=== PATIENT | female | born 1960 | race Caucasian/White ===

== ENCOUNTER 2020-11-21 13:10 | Observation (INO) ==
[~2020-11-21 13:10] MED LIST: Buffered Lidocaine 1% SYRIN 1 ml INTRADERM ONE; Famotidine IV 10 MG/ML 2 ml VIAL (20 mg) IV ONE; Lactated Ringers 1000 ml BAG 1,000 ML IV SCH; Levalbuterol 0.63MG/3ML NEB UNIT OF USE INH ONE
[2020-11-21] MEDS ORDERED: Levalbuterol 0.63MG/3ML NEB UNIT OF USE INH ONE (13:28)
[2020-11-21] MEDS ORDERED: Famotidine IV 10 MG/ML 2 ml VIAL (20 mg) ONE (13:28)
[2020-11-21] MEDS ORDERED: ceFAZolin 2 GM in NS PREMIX 2 GM/100 ML BAG IVPB ONE (13:28)
[2020-11-21 13:56] LABS: Hematocrit 32 % (35-47); Hemoglobin 11.5 g/dL (12.0-16.0); Mean Corpuscular HGB Conc 36 g/dL (31-36); Mean Corpuscular Hemoglobin 35 pg (27-31); Mean Corpuscular Volume 96 fL (80-97); Mean Platelet Volume 7.8 fL (7.4-10.4); Platelet Count 236 10^3/uL (150-450); Red Blood Count 3.33 10^6 /uL (3.70-4.87); Red Cell Distribution Width 13 % (10-15); White Blood Count 7.5 10^3/uL (3.5-10.8)
[2020-11-21 14:12] LABS: Calcium 9.7 mg/dL (8.6-10.3); EGFR African American 110.2 (>60); Potassium 3.5 mmol/L (3.5-5.0)
[2020-11-21] MEDS ORDERED: ROPIVACAINE 5 MG/ML 30 ML BTL (0.5%) ONE (14:42)
[2020-11-21] MEDS ORDERED: Midazolam 2 mg/2 ml VIAL 1 mg/ml 2 ml VIAL (2 mg) ONE (14:45)
[2020-11-21] MEDS ORDERED: fentaNYL 250 mcg/5 ml 50 MCG/ML 5 ml VIAL (250 MCG) ONE (14:45)
[2020-11-21] MEDS ORDERED: Rocuronium 50 mg VIAL 10 mg/ml 5 ml VIAL (50 mg) ONE (14:46)
[2020-11-21] MEDS ORDERED: Propofol 10 MG/ML 20 ML BTL ONE (14:46)
[2020-11-21] MEDS ORDERED: Ondansetron 4 mg VIAL 2 MG/ML 2 ml VIAL ONE (14:46)
[2020-11-21] MEDS ORDERED: Dexamethasone IV 4 MG/ML VIAL 1 ml VIAL ONE ×2 (14:46→15:33)
[2020-11-21] MEDS ORDERED: Lidocaine 2% PF 5 ML VIAL ONE (14:46)
[2020-11-21] MEDS ORDERED: Prochlorperazine 5 mg/ml 2 ml VIAL (10 mg) IV PRN (15:38)
[2020-11-21] MEDS ORDERED: diPHENhydraMINE IV 50 MG/ML 1 ml VIAL (BENADRYL) IV PRN ×2 (15:38→19:04)
[2020-11-21] MEDS ORDERED: Naloxone 0.4 mg VIAL 0.4 mg/ml 1 ml VIAL IV PRN (15:38)
[2020-11-21] MEDS ORDERED: Phenylephrine 40 mcg/mL 10mL (400mcg) SYRINGE ONE (15:45)
[2020-11-21] MEDS ORDERED: Phenylephrine IV 10 MG/ML 1 ml VIAL ONE (16:08)
[2020-11-21] MEDS ORDERED: EPHEDrine (Pressors) 50 MG/ML VIAL ONE (16:25)
[2020-11-21] MEDS ORDERED: Vancomycin 1,000 MG VIAL ONE (18:11)
[2020-11-21] MEDS ORDERED: diPHENhydraMINE 25 mg TAB PO PRN (19:04)
[2020-11-21] MEDS ORDERED: Magnesium Hydroxide LIQ 30 ML UDC PO PRN (19:04)
[2020-11-21] MEDS ORDERED: Morphine 2 MG/ML SYRINGE IV PRN (19:04)
[2020-11-21] MEDS ORDERED: Lactulose 30 ml UDC PO PRN (19:04)
[2020-11-21] MEDS ORDERED: Ondansetron 4 mg VIAL 2 MG/ML 2 ml VIAL IV PRN (19:04)
[2020-11-21] MEDS ORDERED: Ondansetron ODT 4 mg TAB 4 MG TAB PO PRN (19:04)
[2020-11-21] MEDS ORDERED: Albuterol HFA INHALER 8 gm MDI INH PRN (19:18)
[2020-11-21] MEDS ORDERED: Lactated Ringers 1000 ml BAG 1,000 ML IV SCH (20:00)
[2020-11-21] MEDS: Magnesium Hydroxide LIQ 30 ML UDC PO SCH (21:15)
[2020-11-21] MEDS: ceFAZolin 1 GM ADVAN 1 GM in NS 0.9% 50 ML 50 ML IVPB SCH (23:53)
[2020-11-22 07:17] LABS: Hematocrit 25 % (35-47); Hemoglobin 8.9 g/dL (12.0-16.0); Mean Platelet Volume 7.6 fL (7.4-10.4); Platelet Count 189 10^3/uL (150-450)
[2020-11-22 07:32] LABS: Calcium 8.7 mg/dL (8.6-10.3); EGFR African American 130.5 (>60); EGFR Non-African American 107.8 (>60); Potassium 3.5 mmol/L (3.5-5.0)
[2020-11-22] MEDS: Magnesium Hydroxide LIQ 30 ML UDC PO SCH ×2 (07:55→08:02)
[2020-11-22] MEDS: ceFAZolin 1 GM ADVAN 1 GM in NS 0.9% 50 ML 50 ML IVPB SCH (07:56)
[2020-11-22 08:04] VITALS: BP 157/75
[2020-11-22] MEDS ORDERED: Vitamin THERAPEUTIC TAB PO SCH (09:00)
[2020-11-22] MEDS ORDERED: CMC:Budesonide 3 mg CAP (NF) PO SCH (09:00)
[2020-11-22] MEDS ORDERED: Enoxaparin 30 MG/0.3 ML SYR SUBCUT SCH (12:00)
== END 2020-11-22 11:05 | disposition home or self-care (01) ==
LOC: SSU 13:10 → OR 13:10
PROVIDERS: ADMIT Orthopaedic Surgery Hand Surgery; ATTEND Orthopaedic Surgery Hand Surgery

== ENCOUNTER 2022-11-11 14:57 | Observation (INO) ==
[2022-11-11 20:07] LABS: Hematocrit 31.4 % (35-45); Mean Corpuscular Hemoglobin 28.6 pg (27-33); Mean Corpuscular Hgb Conc 34.9 g/dL (31-36); Mean Corpuscular Volume 81.9 fL (80-97); Platelet Count 139 10^3/uL (150-450); Red Blood Count 3.83 10^6/uL (3.63-4.92); Red Cell Distribution Width 12.5 % (12-17); White Blood Count 1.3 10^3/uL (3.8-11.8)
[2022-11-11] MEDS ORDERED: Filgrastim* 480 MCG VIAL (AUTOSUB = ZARXIO*) SUBCUT ONE (20:15)
[2022-11-11 20:25] LABS: Albumin 4.1 g/dL (3.2-5.2); Albumin/Globulin Ratio 1.4 (1-3); Calcium 9.9 mg/dL (8.6-10.3); Creatinine, Serum 0.46 mg/dL (0.51-0.95); Globulin 2.9 g/dL (2-4); Potassium 3.6 mmol/L (3.5-5.0); Total Bilirubin 0.4 mg/dL (0.2-1.0); eGFR CKD-EPI 107.5 (>60)
[2022-11-11] MEDS ORDERED: NS 0.9% 1000 ml BAG 1,000 ML IV SCH (20:30)
[2022-11-11 21:16] LABS: ABS Lymphocytes 0.8 10^3/uL (1.0-4.8); ABS Monocytes 0.4 10^3/uL (0.0-0.9); ABS Neutrophils 0.1 10^3/uL (1.5-7.6); Eosinophil % 1.8 %; Lymphocyte % 61.2 %; Nucleated Red Blood Cells % 0.3 /100 WBC (0.0-0.4)
[2022-11-11] MEDS ORDERED: Enoxaparin 40 MG/0.4 ML SYR SUBCUT SCH (22:00)
[2022-11-12] MEDS ORDERED: Albuterol/Ipratropium NEB.SOL (2.5/0.5 MG) 3 ML NEB.SOLN INH PRN (00:02)
[2022-11-12] MEDS ORDERED: Albuterol HFA INHALER 8 gm MDI INH PRN (00:08)
[2022-11-12 05:08] LABS: Hematocrit 26.7 % (35-45); Hemoglobin 9.6 g/dL (11.5-14.3); Mean Corpuscular Hemoglobin 29.1 pg (27-33); Mean Corpuscular Hgb Conc 35.9 g/dL (31-36); Mean Corpuscular Volume 80.9 fL (80-97); Platelet Count 109 10^3/uL (150-450); Red Cell Distribution Width 12.4 % (12-17); White Blood Count 1.5 10^3/uL (3.8-11.8)
[2022-11-12 05:10] LABS: ABS Lymphocytes 0.6 10^3/uL (1.0-4.8); ABS Monocytes 0.4 10^3/uL (0.0-0.9); ABS Neutrophils 0.5 10^3/uL (1.5-7.6); Eosinophil % 1.4 %; Lymphocyte % 38.3 %; Nucleated Red Blood Cells % 0.3 /100 WBC (0.0-0.4)
[2022-11-12 05:14] LABS: Urine Appearance Cloudy; Urine Bilirubin Negative (Negative); Urine Blood Negative (Negative); Urine Color Colorless; Urine Glucose Negative (Negative); Urine Ketones Negative (Negative); Urine Nitrite Negative (Negative); Urine Protein Negative (Negative); Urine Specific Gravity 1.001 (1.002-1.030); Urine Urobilinogen Negative (Negative)
[2022-11-12 05:22] LABS: Calcium 9.1 mg/dL (8.6-10.3); Creatinine, Serum 0.44 mg/dL (0.51-0.95); Potassium 3.6 mmol/L (3.5-5.0); eGFR CKD-EPI 108.6 (>60)
[2022-11-12 05:23] LABS: HDL Cholesterol 29.1 mg/dL
[2022-11-12] MEDS ORDERED: Enoxaparin 40 MG/0.4 ML SYR SUBCUT SCH (06:00)
[2022-11-12 06:17] LABS: Vitamin D Total 25(OH) 25.8 ng/mL (20-50)
[2022-11-12] MEDS ORDERED: Cholecalciferol (VIT D3) 1,000 unit TAB PO SCH (09:00)
[2022-11-12 11:46] VITALS: BP 124/77
== END 2022-11-12 11:46 | disposition home or self-care (01) ==
LOC: ED 14:57 → EDHOLD 14:57 → SUATTDRO 20:48 → INTOOBSV 20:48 → EDHOLD 11-12 11:45
PROVIDERS: ADMIT Internal Medicine; ATTEND Internal Medicine